=== PATIENT | female | born 1990 | race Caucasian/White ===

== ENCOUNTER 2018-08-06 06:35 | Outpatient (CLI) | payer OTHER ==
--- NOTE | 2018-08-06 07:57 | ULT ---
PELVIC ULTRASOUND WITH DOPPLER: (transabdominal, suazo scale, color flow, and spectral Doppler) HISTORY: Left lower quadrant pain. FINDINGS: The uterus measures 8.6 x 4.6 x 3.8 cm without focal mass or endometrial fluid. The endometrium lesly ures 5 mm in thickness. The right ovary measures 3.7 x 3 x 1.7 cm and the left ovary measures 3.4 x 1.5 x 1.2 cm. There are 3 cm right ovarian cysts. No free fluid is seen in the cul-de-sac. IMPRESSION: A 3 cm right ovarian cyst. POS: [facility]
== END 2018-08-06 06:36 | disposition home or self-care (01) ==
LOC: BICULT 06:35
PROVIDERS: ATTEND Student in an Organized Health Care Education/Training Program
DX: R10.2 Pelvic and perineal pain (principal); N83.201 Unspecified ovarian cyst, right side
CPT/HCPCS: 76856; 93976